=== PATIENT | male | born 1980 | race Caucasian/White ===

== ENCOUNTER 2017-03-10 17:59 | Emergency (ER) | payer OTHER ==
[2017-03-10 18:19] VITALS: BP 122/74; PULSE 73; TEMP 98.8; BMI 34.2
--- NOTE | 2017-03-10 19:18 | PDOC ---
History of Present Illness - General Chief Complaint: Rectal Bleed Stated Complaint: PAIN Time Seen by Provider: 03/10/17 19:01 History Source: Patient - History of Present Illness Initial Comments: 03/10/17 19:47 Patient is a 37 y.o. male with no reported PMH who presents c/o 3 week h/o bright rectal bleed as well as 1 month h/o of watery diarrhea. Patient denies any associated abdominal cramping, increased urgency or changes in appetite. 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 Patient notes he completed a seven day course of antibiotics prescribed by his primary care doctor, however the diarrhea did not resolve. As per EMR patient was previously evaluated at our facility in 2015 and treated for GERD. NKDA Surgical: None Social: denies cigarettes, denies alcohol, denies recreational drugs Past History - Past Medical History Allergies/Adverse Reactions: Allergies Allergy/AdvReac Type Severity Reaction Status Date / Time No Known Allergies Allergy Verified 03/10/17 18:03 Home Medications: Ambulatory Orders NK [No Known Home Medication] 03/10/17 Psychiatric Problems: Yes (depression) - Suicide/Smoking/Psychosocial Hx Smoking History: Never smoked Have you smoked in the past 12 months: No Information on smoking cessation initiated: No Hx Alcohol Use: No Drug/Substance Use Hx: No Substance Use Type: None Review of Systems - Review of Systems Constitutional: No: Chills, Fever Respiratory: No: Shortness of Breath Cardiac (ROS): No: Chest Pain ABD/GI: Yes: Diarrhea, Rectal Bleeding. No: Nausea, Vomiting : No: Burning, Dysuria *Physical Exam - Vital Signs Last Vital Signs Temp Pulse Resp BP Pulse Ox 98.8 F 73 20 122/74 98 03/10/17 18:04 03/10/17 18:04 03/10/17 18:04 03/10/17 18:04 03/10/17 18:04 - Physical Exam General Appearance: Yes: Nourished, Appropriately Dressed Respiratory/Chest: positive: Lungs Clear Cardiovascular: positive: S1, S2 Gastrointestinal/Abdominal: positive: Soft, Protuberent. negative: Distended, Guarding, Rebound, Tenderness, Hernia, Mass Male Genitalia: positive: normal genitalia Rectal Exam: positive: normal rectal tone. 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 male with no PMH who presents c/o 3 week h/o rectal bleeding and 1 month history of watery non-bloody diarrhea. Initial DDx is for diverticular disease vs. hemorrhoids vs. malignancy. PLAN: 1. CBC, CMP 2. FOBT 3. CT Abdomen w/ oral + IV contrast Reassess 03/11/17 01:21 FOBT (-). CBC shows no anemia as well as no leukocytosis the latter making active infection less likely and CMP shows no electrolyte abnormality. CT Abdomen shows no acute diverticulosis, normal appendix. Patient discharged with referral to gastroenterology and return precautions. *DC/Admit/Observation/Transfer Diagnosis at time of Disposition: Viral gastroenteritis - Discharge Dispostion Disposition: HOME Admit: No - Referrals Referrals: Shelton Reece MD [Staff Physician] - - Patient Instructions Printed Discharge Instructions: DI for Rectal Bleeding, DI for Viral Gastroenteritis -- Adult Additional Instructions: You were evaluated in the emergency department for rectal bleeding and diarrhea. A copy of your abdominal computed tomography scan is provided to you. Please make a follow up appointment wtih a senior chemical engineer for further evaluation. Please return to the Emergency Department should you have any worsening or concerning symptoms.
--- NOTE | 2017-03-10 19:31 | PDOC ---
Attending Attestation - Resident Resident Name: Christal Olmedo - ED Attending Attestation I have performed the following: I have examined & evaluated the patient, The case was reviewed & discussed with the resident, I agree w/resident's findings & plan, Exceptions are as noted - HPI HPI: 03/10/17 19:29 Rectal Bleeding and Watery Diarrhea - Physicial Exam PE: 03/10/17 19:29 VSS, Non Toxic, Abd Soft and Non Distended - Medical Decision Making 03/10/17 19:[address] Christal Graf's Assessment and Plan
[2017-03-10 21:21] LABS: ALBUMIN 4.4 g/dl (3.4-5.0); ANION GAP 4 (8-16); CALCIUM 9.2 mg/dL (8.5-10.1); CO2 29 mmol/L (21-32); GLUCOSE,RANDOM 96 mg/dL (74-106); SGPT/ALT 44 U/L (12-78)
[2017-03-10 21:23] LABS: ALK PHOS 76 U/L (45-117); BILIRUBIN,TOTAL 0.8 mg/dL (0.2-1.0); CREATININE 0.7 mg/dL (0.7-1.3); SGOT/AST 20 U/L (15-37); TOT PROT 8.4 g/dl (6.4-8.2)
[2017-03-11 00:50] LABS: BASOPHIL 0.6 % (0-2.0); EOSINOPHIL 0.4 % (0-4.5); MCH 28.2 pg (25.7-33.7); MCHC 34.4 g/dl (32.0-35.9); NEUTROPHILS 51.5 % (42.8-82.8); PLATELET COUNT 223 K/MM3 (134-434); RDW 13.8 % (11.9-15.9); WHITE BLOOD COUNT 5.5 K/mm3 (4.0-10.0)
== END 2017-03-11 01:47 | disposition home or self-care (01) ==
LOC: JER 17:59
DX: A08.4 Viral intestinal infection, unspecified (principal); B97.89 Other viral agents as the cause of diseases classified elsewhere
CPT/HCPCS: 36415; 74177-TC; 80053; 82272; 85025; 99282-25

== ENCOUNTER 2020-12-17 04:39 | Day surgery (SDC) | payer OTHER ==
[2020-12-16 11:24] VITALS: BMI 40.3
[2020-12-17 09:01] VITALS: TEMP 97.8
[2020-12-17 09:27] VITALS: BP 119/61; PULSE 67
== END 2020-12-17 08:54 | disposition home or self-care (01) ==
LOC: JASU-ENDO 04:39
PROVIDERS: ATTEND Internal Medicine Gastroenterology
PROC: 0DB68ZX Excision of Stomach, Via Natural or Artificial Opening Endoscopic, Diagnostic (ICD-10-PCS; 2020-12-17)
PROC: 0DJD8ZZ Inspection of Lower Intestinal Tract, Via Natural or Artificial Opening Endoscopic (ICD-10-PCS; principal; 2020-12-17 08:45)
DX: K29.50 Unspecified chronic gastritis without bleeding (principal); R10.9 Unspecified abdominal pain
CPT/HCPCS: 88305-TC; 88342-TC